=== PATIENT | male | born 1995 | race Caucasian/White ===

== ENCOUNTER 2016-03-11 05:35 | Day surgery (SDC) | payer BC ==
[~2016-03-11] VITALS: Ht 188 cm; Wt 82.1 kg
[~2016-03-11 05:35] MED LIST: ADDERALL20 MG PO; MULTI-VITAMIN1 EAC4 PO
[2016-03-11 06:20] VITALS: BP 101/67
[2016-03-11 11:10] VITALS: BP 128/69
[2016-03-11 12:18] VITALS: BP 146/93
[2016-03-11 13:11] VITALS: BP 128/86
== END 2016-03-11 13:10 | disposition home or self-care (01) ==
LOC: SDC 05:35
DX: J34.2 Deviated nasal septum (principal); J31.0 Chronic rhinitis; K21.9 Gastro-esophageal reflux disease without esophagitis
CPT/HCPCS: J0330; J0690; J1100; J2250; J2405; J2710; J2765; J3010; J3301; J7050

== ENCOUNTER 2017-03-17 12:27 | Emergency (ER) | payer BC ==
[~2017-03-17] VITALS: Ht 188 cm; Wt 81.8 kg
[2017-03-17 13:21] LABS: BASOPHIL (%) 0 % (0-1); EOSINOPHIL (%) 0.2 % (0-5); HEMATOCRIT 40.8 % (38.0-50.0); IMMATURE GRANULOCYTE (%) 0.3 % (0.0-0.7); LYMPHOCYTE (%) 14.7 % (15-42); LYMPHOCYTE COUNT 0.9 K/uL (1.0-2.8); MCH 29.7 PG (29.0-34.0); MCHC 34.3 G/DL (30.0-36.0); MCV 86.6 FL (86-99); MONOCYTE (%) 12.8 % (3-12); MONOCYTE COUNT 0.8 K/uL (0-0.8); NEUTROPHIL COUNT 4.3 K/uL (1.8-6.4); PLATELET COUNT 172 K/uL (156-360); RBC DIS.WIDTH-CV 11.3 % (11.8-14.6); RBC DIS.WIDTH-SD 36.2 % (39-53); RED BLOOD COUNT 4.71 M/uL (4.00-5.50); WHITE BLOOD COUNT 5.9 K/uL (4.1-10.2)
[2017-03-17 13:34] LABS: ALBUMIN 4.1 g/dL (3.2-4.8); CHLORIDE 102 mEq/L (99-109); POTASSIUM 3.7 mEq/L (3.7-5.4); SODIUM 135 mEq/L (136-147)
[2017-03-17 13:36] LABS: GLUCOSE 80 mg/dL (70-99); TOTAL PROTEIN 6.9 g/dL (6.4-8.3)
[2017-03-17 13:38] LABS: TOTAL BILIRUBIN 0.6 mg/dL (0.0-1.0)
[2017-03-17 13:40] LABS: ALKALINE PHOSPHATASE 57 IU/L (3-129); CREATININE 0.8 mg/dL (0.6-1.3); GFR ESTIMATE (CALCULATED) > 59 mL/min/ (58.99-99999)
[2017-03-17 13:41] LABS: UREA NITROGEN (BUN) 11 mg/dL (9-23)
[2017-03-17 13:42] LABS: AST (GOT) 30 IU/L (2-34)
[2017-03-17 13:43] LABS: ALT (GPT) 32 IU/L (3-49); TROP-I INTERPRETATION NEGATIVE; TROPONIN-I < 0.01 ng/mL (0.0-0.30)
[2017-03-17] MEDS ORDERED: PRILOSEC20 MG PO (15:26)
[2017-03-17] MEDS ORDERED: MOTRIN600 MG PO (15:28)
[2017-03-17 17:22] VITALS: BP 145/86
== END 2017-03-17 17:23 | disposition home or self-care (01) ==
LOC: EME 12:27
PROVIDERS: Physician Assistant
DX: R09.1 Pleurisy (principal); E86.0 Dehydration; K20.9 Esophagitis, unspecified
CPT/HCPCS: 80053; 84484; 85025; 85379; 87502; 93005; 99281; 99285; J1885; J2405; J7030